=== PATIENT | female | born 1995 | race Caucasian/White ===

== ENCOUNTER 2023-08-28 07:31 | Outpatient (OUT) | payer OTHER, SELFPAY ==
--- NOTE | 2023-08-28 07:33 | US_ITS ---
The [address] [address] Patient Name: CALVIN ARRIETA MRN: [id number] date: 1995 Sex: F Assigned Patient Location: US Current Patient Location: US Accession/Order Number: [id number] Exam Date: 08/28/2023 07:59 Report Date: 08/28/2023 09:00 At the request of: SARAH GIBBONS Procedure: US right upper quadrant EXAM: US right upper quadrant HISTORY: Generalized Abdominal Pain R10.54 COMPARISON: None TECHNIQUE: Ultrasound study of the right upper quadrant of the abdomen was performed. FINDINGS: In the gallbladder no evidence of gallstones or gallbladder wall thickening. No obvious pericholecystic fluid. Common bile duct measures 0.49 cm in diameter which is within normal limits. Views of the liver fail to demonstrate obvious mass or intrahepatic ductal dilatation. Visualized pancreas appears grossly unremarkable. Visualized right kidney appears grossly unremarkable measuring approximately 11.6 x 6.6 x 5.2 cm in longitudinal, transverse and AP dimensions. No obvious right renal mass or calculus. No evidence of hydronephrosis to suggest obstructive uropathy. Renal cortex appears unremarkable measuring 1.6 cm in thickness. US/US right upper quadrant IMPRESSION: Ultrasound study of the right upper quadrant of the abdomen is grossly unremarkable. Electronically authenticated by: SAPNA ELDRIDGE Date: 08/28/2023 09:00
== END 2023-08-28 07:32 | disposition home or self-care (01) ==
LOC: US 07:31
PROVIDERS: PCP Nurse Practitioner Family; Visit Provider Nurse Practitioner Family
DX: R10.84 Generalized abdominal pain (principal)
CPT/HCPCS: 76705